=== PATIENT | female | born 1980 | race Hispanic/Latino ===

== ENCOUNTER 2019-05-03 08:42 | Emergency (ER) | payer OTHER ==
[2019-05-03] MEDS ORDERED: NA CHLORIDE 0.9% 2,000 ML ONE (09:05)
[2019-05-03 09:31] LABS: Absolute Lymphocytes (CBC) 1.7 K/uL (0.7-4.9); Basophils % 0.8 % (0-1.3); Hematocrit 44.8 % (36.0-45.0); Lymphocytes % 18.9 % (15.3-44.8); MPV 9.3 fL (7.6-11.3); RBC Red Blood Cell Count 5.24 M/uL (3.86-4.86)
[2019-05-03 09:47] LABS: Potassium 3.6 mmol/L (3.5-5.1)
[2019-05-03 10:41] LABS: Urine Blood NEGATIVE (NEG); Urine Glucose NEGATIVE (NEG); Urine Protein NEGATIVE (NEG); Urine Specific Gravity 1.015 (1.005-1.030)
[2019-05-03 10:43] LABS: Urine Bacteria 20-50 /HPF (<20); Urine Culture Reflex Order REFLEXED; Urine RBC <5 /HPF (NONE SEEN)
--- NOTE | 2019-05-03 10:57 | EDPHYS ---
Physician Documentation [facility] Name: Wander Telles Age: 38 yrs Sex: Female : 1980 Arrival Date: 05/03/2019 Time: 08:44 Bed 5 Private MD: ED Physician Phillip De La Garza HPI: 05/03 08:59 This 38 yrs old Female presents to ER via Unassigned with complaints of rn Urinary Retention. 08:59 Reports doesn't feel well, began yesterday with chills, malaise, decreased appetite, rn not eating or drinking, also only a little urine today. No sick contacts. No fever. . Onset: The symptoms/episode began/occurred yesterday. Severity of symptoms: At their worst the symptoms were moderate in the emergency department the symptoms are unchanged. The patient has not experienced similar symptoms in the past. The patient has not recently seen a physician. 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 - Social history:: Smoking status: Patient uses tobacco products, smokes one-half pack cigarettes per day. - Family history:: not pertinent. - Ebola Screening: : Patient denies exposure to infectious person Patient denies travel to an Ebola-affected area in the 21 days before illness onset. - Hospitalizations: : No recent hospitalization is reported. ROS: 08:59 Constitutional: Negative for fever, and weight loss, Eyes: Negative for injury, pain, rn redness, and discharge, ENT: Negative for injury, pain, and discharge, Neck: Negative for injury, pain, and swelling, Cardiovascular: Negative for chest pain, palpitations, and edema, Respiratory: + cough, neg for sob Abdomen/GI: Negative for abdominal pain, nausea, vomiting, and constipation, MS/Extremity: Negative for injury and deformity, Skin: Negative for injury, rash, and discoloration, Neuro: + generalized weakness Exam: 08:59 Constitutional: This is a well developed, well nourished patient who is awake, alert, rn and in no acute distress. Ambulatory to room without difficulty or distress Head/Face: Normocephalic, atraumatic. Eyes: Pupils equal round and reactive to light, extra-ocular motions intact. Lids and lashes normal. Conjunctiva and sclera are non-icteric and not injected. Cornea within normal limits. Periorbital areas with no swelling, redness, or edema. ENT: dry MM, mild pharyngeal erythema, no exuduate Neck: Trachea midline, no thyromegaly or masses palpated, and no cervical lymphadenopathy. Supple, full range of motion without nuchal rigidity, or vertebral point tenderness. No Meningismus. Cardiovascular: Tachycardic, regular, No pulse deficits. Respiratory: Lungs have equal breath sounds bilaterally, clear to auscultation. No increased work of breathing, no retractions or nasal flaring. Abdomen/GI: soft, non-tender Skin: Warm, dry, and no evidence of cellulitis. MS/ Extremity: Pulses equal, no cyanosis. Neurovascular intact. Full, normal range of motion. Equal circumference. Neuro: Awake and alert, GCS 15, oriented to person, place, time, and situation. Cranial nerves II-XII grossly intact. Motor strength 5/5 in all extremities. Sensory grossly intact. Cerebellar exam normal. Normal gait. Vital Signs: 08:59 BP 142 / 104; Pulse 108; Resp 17; Temp 98.3(O); Pulse Ox 99% on R/A; Weight 84.82 kg; ss Height 4 ft. 11 in. (149.86 cm); 10:11 BP 141 / 105; Pulse 88; Pulse Ox 97% on R/A; ae4 11:10 BP 153 / 101; Pulse 81; Resp 16; Temp 98.3; Pulse Ox 99% ; bp 08:59 Body Mass Index 37.77 (84.82 kg, 149.86 cm) MDM: 08:48 Patient medically screened. rn 10:54 Differential Diagnosis flu, UTI, strep/mono/dehydration. Data reviewed: vital signs, rn nurses notes, lab test result(s), radiologic studies, plain films, and as a result, I will discharge patient. Counseling: I had a detailed discussion with the patient and/or guardian regarding: the historical points, exam findings, and any diagnostic results supporting the discharge/admit diagnosis, lab results, radiology results, the need for outpatient follow up, to return to the emergency department if symptoms worsen or persist or if there are any questions or concerns that arise at home. Response to treatment: the patient's symptoms have markedly improved after treatment. Special discussion: I discussed with the patient/guardian in detail that at this point there is no indication for admission to the hospital. It is understood, however, that if the symptoms persist or worsen the patient needs to return immediately for re-evaluation. ED course: Feels much better, has urinated 3 times now, neg w/u for acute findings, afebrile, no longer tachycardic. Possible viral syndrome or flu-like illness or early in continuum of illness. Urged to return if symptoms change or worsen.. 05/03 08:58 Order name: CBC with Diff; Complete Time: 10:16 05/03 08:58 Order name: Basic Metabolic Panel; Complete Time: 10:16 05/03 08:58 Order name: [place] Screen Profile; Complete Time: 10:16 rn 05/03 08:58 Order name: Influenza Screen (a \T\ B); Complete Time: 10:16 05/03 08:58 Order name: Strep; Complete Time: 10:16 05/03 08:58 Order name: Urine Microscopic Only; Complete Time: 10:57 rn 05/03 08:58 Order name: IV Start; Complete Time: 09:25 rn 05/03 08:58 Order name: Urine Test (obtain specimen); Complete Time: 10:23 05/03 08:58 Order name: XRAY Chest (1 view) 05/03 09:45 Order name: Throat Culture [facility] 05/03 10:20 Order name: Urine Dipstick--Ancillary (enter results); Complete Time: 10:57 05/03 10:45 Order name: Urine Culture [facility] 05/03 08:58 Order name: Urine Dipstick-Ancillary (obtain specimen); Complete Time: 10:23 rn Administered Medications: 09:10 Drug: NS 0.9% 1000 ml Route: IV; Rate: 1000 ml; Site: right antecubital; ae4 11:10 Follow up: IV Status: Completed infusion; IV Intake: 1000ml bp 09:13 Drug: NS 0.9% 1000 ml Route: IV; Rate: 1000 ml; Site: right antecubital; ae4 11:10 Follow up: IV Status: Completed infusion; IV Intake: 1000ml bp Disposition: 05/03/19 10:56 Discharged to Home. Impression: Dehydration, Viral Syndrome. - Condition is Stable. - Discharge Instructions: Dehydration, Adult. - Medication Reconciliation Form, Thank You Letter, Antibiotic Education, Prescription Opioid Use form. - Follow up: Private Physician; When: As needed; Reason: Recheck today's complaints, Re-evaluation by your physician. - Problem is new. - Symptoms have improved. Signatures: Dispatcher [employer] EDMS Phillip De La Garza MD MD rn Smirch, Shelby RN RN Jose Pritchett RN RN Wander Davidson RN RN ae4 Corrections: (The following items were deleted from the chart) 11:59 10:56 05/03/2019 10:56 Discharged to Home. Impression: Dehydration; Viral Syndrome. bp Condition is Stable. Forms are Medication Reconciliation Form, Thank You Letter, Antibiotic Education, Prescription Opioid Use. Follow up: Private Physician; When: As needed; Reason: Recheck today's complaints, Re-evaluation by your physician. Problem is new. Symptoms have improved. rn
--- NOTE | 2019-05-03 10:57 | ER ---
Nurse's Notes [facility] Name: Wander Telles Age: 38 yrs Sex: Female : 1980 Arrival Date: 05/03/2019 Time: 08:44 Bed 5 Private MD: Diagnosis: Dehydration;Viral Syndrome Presentation: 05/03 09:00 Presenting complaint: Patient states: Shaking, dry mouth, decreased appetite, cold/hot ss sweats and diarrhea that began yesterday. Transition of care: patient was not received from another setting of care. Onset of symptoms was May 04, 2019. Risk Assessment: Do you want to hurt yourself or someone else? Patient reports no desire to harm self or others. Initial Sepsis Screen: Does the patient meet any 2 criteria? No. Patient's initial sepsis screen is negative. Does the patient have a suspected source of infection? No. Patient's initial sepsis screen is negative. Care prior to arrival: None. 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 - Social history:: Smoking status: Patient uses tobacco products, smokes one-half pack cigarettes per day. - Family history:: not pertinent. - Ebola Screening: : Patient denies exposure to infectious person Patient denies travel to an Ebola-affected area in the 21 days before illness onset. - Hospitalizations: : No recent hospitalization is reported. Screenin:00 Abuse screen: Denies threats or abuse. Denies injuries from another. Nutritional bp screening: No deficits noted. Fall Risk None identified. 10:20 Tuberculosis screening: No symptoms or risk factors identified. ae4 Assessment: 09:25 General: Appears in no apparent distress. uncomfortable, obese, unkempt, Behavior is ae4 cooperative, agitated. Pain: Complains of pain in abdomen. Neuro: Level of Consciousness is awake, alert, obeys commands. 10:17 Reassessment: Patient appears in no apparent distress at this time. Cardiovascular: ae4 Patient's skin is warm and dry. Rhythm is regular. Respiratory: Airway is patent. GI: Reports lower abdominal pain, upper abdominal pain, diarrhea. : Reports scant urine output. EENT: No signs and/or symptoms were reported regarding the EENT system. Derm: Skin is intact, Skin is dry, Skin is pale, Skin temperature is warm. Musculoskeletal: Reports Generalized weakness. 10:45 Reassessment: Patient and/or family updated on plan of care and expected duration. Pain ae4 level reassessed. Patient states symptoms have improved. 11:58 Reassessment: PT D/C HOME AMBULATORY WITH FAMILY, DX WITH VIRAL SYNDROME. bp Vital Signs: 08:59 BP 142 / 104; Pulse 108; Resp 17; Temp 98.3(O); Pulse Ox 99% on R/A; Weight 84.82 kg; Height 4 ft. 11 in. (149.86 cm); 10:11 BP 141 / 105; Pulse 88; Pulse Ox 97% on R/A; ae4 11:10 BP 153 / 101; Pulse 81; Resp 16; Temp 98.3; Pulse Ox 99% ; bp 08:59 Body Mass Index 37.77 (84.82 kg, 149.86 cm) ED Course: 08:44 Patient arrived in ED. as 08:48 Phillip De La Garza MD is Attending Physician. rn 08:59 Arm band placed on right wrist. 09:01 Triage completed. 09:01 Wander Iyer, RN is Primary Nurse. ae4 09:15 Inserted saline lock: 20 gauge in right antecubital area, using aseptic technique. bp Blood collected. 09:30 Bed in low position. Call light in reach. Side rails up X 1. Adult w/ patient. Pulse ox ae4 on. NIBP on. Warm blanket given. 09:56 X-ray completed. Portable x-ray completed in exam room. Patient tolerated procedure mh1 well. 09:58 XRAY Chest (1 view) In Process Unspecified. EDMS 11:58 No provider procedures requiring assistance completed. IV discontinued, intact, bp bleeding controlled, No redness/swelling at site. Pressure dressing applied. Administered Medications: 09:10 Drug: NS 0.9% 1000 ml Route: IV; Rate: 1000 ml; Site: right antecubital; ae4 11:10 Follow up: IV Status: Completed infusion; IV Intake: 1000ml bp 09:13 Drug: NS 0.9% 1000 ml Route: IV; Rate: 1000 ml; Site: right antecubital; ae4 11:10 Follow up: IV Status: Completed infusion; IV Intake: 1000ml bp Intake: 11:10 IV: 1000ml; Total: 1000ml. bp 11:10 IV: 1000ml; Total: 2000ml. bp Outcome: 10:56 Discharge ordered by MD. rn 11:59 Discharged to home ambulatory, with family. bp 11:59 Condition: stable 11:59 Discharge instructions given to patient, Instructed on discharge instructions, follow up and referral plans. Demonstrated understanding of instructions, follow-up care. 11:59 Patient left the ED. bp Signatures: Dispatcher [employer] EDMS Rebecca Moran 1 Catrina Ornelas Roman, MD MD rn Smirch, Shelby, RN RN Jose Pritchett RN RN bp Elliott, Andrea, RN RN ae4 Corrections: (The following items were deleted from the chart) 10:19 09:25 Neuro: Level of Consciousness is awake, alert, obeys commands, ae4 ae4
--- NOTE | 2019-05-03 12:56 | RAD REPORT ---
EXAM DESCRIPTION: RAD - Chest Single View - 05/03/2019 9:58 am CLINICAL HISTORY: COUGH Chest pain. COMPARISON: No comparisons FINDINGS: Portable technique limits examination quality. The lungs are grossly clear. The heart is normal in size. No displaced fractures. IMPRESSION: No acute intrathoracic process suspected.
[2019-05-03 14:28] VITALS: TEMP 98.3
[2019-05-03 14:32] VITALS: BP 153/101; O2SAT 99
== END 2019-05-03 11:59 | disposition home or self-care (01) ==
LOC: ER 08:42
DX: E86.0 Dehydration (principal); B34.9 Viral infection, unspecified; F17.210 Nicotine dependence, cigarettes, uncomplicated; E78.00 Pure hypercholesterolemia, unspecified; Z88.5 Allergy status to narcotic agent; Z98.82 Breast implant status
CPT/HCPCS: 96361; 87070; 87088; 85025; 87086; 80048; 36415; 86308; 87081; 87804 ×2; 71045; 96360; 99284; J7030; 81003; 81015